=== PATIENT | female | born 2000 | race Caucasian/White ===

== ENCOUNTER → 2018-12-19 | Outpatient (CLI) | payer BC ==
[~2018-12-19] MED LIST: ACET325; AMOCLA875 PO; AMOX500 PO; AMOX875 PO; AZIT250 PO; BIRTH CONTROL PO; CETI10 PO; CETI5 PO; CLOBET30L TOP; CYCL10 PO; HYDGUAL120 PO; HYDR1TAB94 PO; IBUP400 PO; LORA10ER; Mupirocin22 GM TOP; Naprosyn500 MG PO; Norco 10-325 T1 EACH PO; Norco 5-325 Ta1 EACH PO; PSEU120ER PO; Prozac20 MG PO
== END | disposition home or self-care (01) ==
LOC: LAB SHORT 13:41 → LAB EV 13:41
DX: R30.0 Dysuria (principal)
CPT/HCPCS: 87086

== ENCOUNTER 2020-01-21 00:59 | Emergency (ER) | payer BC ==
[~2020-01-21] VITALS: Ht 160 cm; Wt 117.9 kg
[~2020-01-21 00:59] MED LIST changes: +BIRTH CONTROL; +CEPH500 PO; +Pyridium100 MG PO
[2020-01-21] MEDS ORDERED: ENSKYCE1 EACH PO (02:29)
[2020-01-21] MEDS ORDERED: Prinivil5 MG PO (04:09)
== END 2020-01-21 03:11 | disposition home or self-care (01) ==
LOC: ER 00:59
DX: I10 Essential (primary) hypertension (principal); J02.9 Acute pharyngitis, unspecified; Z79.899 Other long term (current) drug therapy
CPT/HCPCS: 99282